=== PATIENT | female | born 1990 | race African-American/Black ===

== ENCOUNTER 2019-05-28 14:09 | Outpatient (CLI) | payer MEDICAID ==
--- NOTE | 2019-05-28 15:18 | ULT ---
ULTRASOUND OBSTETRICAL COMPLETE: DATE: 05/28/2019 HISTORY: 28-year-old high-risk in second trimester ICD-10: O09.92 FINDINGS: number: zavaleta lie: Vertex Maternal cervix: 3.5 cm. Closed. Placenta: Posterior. No placenta previa. Amniotic fluid volume: URIEL = 16.5 cm heart rate: 152 bpm The following anatomy is visualized, with no evidence of anomalies: Head, cerebellum, lateral ventricles, four-chamber heart, stomach, kidneys, cord insertion, bladder, cervical spine, thoracic spine, lumbar spine, sacrum, nose and lips, upper extremities, lower extremities, and three-vessel cord. biometry: Biparietal diameter (BPD): 4.8 cm 20 w 5 d Head circumference (HC): 18.2 cm 20 w 5 d Abdominal circumference (AC): 14.7 cm 20 w 0 d Femur length (FL): 3.3 cm 20 w 3 d Average ultrasound age (AUA): 20 w 4 d Estimated date of delivery (FABIOLA): 10/11/2019 Estimated weight (EFW): 340 g +/- 50 g IMPRESSION: 1) Live 2nd trimester intrauterine gestation. 2) Estimated gestational age of 20 weeks, 4 days 3) cephalic lie. 4) no anatomic abnormality identified.
== END 2019-05-28 14:10 | disposition home or self-care (01) ==
LOC: BICULT 14:09
PROVIDERS: ATTEND Nurse Practitioner
DX: O09.92 Supervision of high risk pregnancy, unspecified, second trimester (principal); Z3A.20 20 weeks gestation of pregnancy
CPT/HCPCS: 76805

== ENCOUNTER 2019-09-30 01:43 | Outpatient (CLI) | payer OTHER ==
[2019-09-30 22:22] LABS: SARS-CoV-2 MS2 Positive; SARS-CoV-2 N Gene Negative; SARS-CoV-2 S Gene Negative; SARS-CoV-2 orf1ab Negative
== END 2019-09-30 01:44 | disposition home or self-care (01) ==
LOC: ERS 01:43
PROVIDERS: ATTEND Family Medicine
DX: Z11.59 Encounter for screening for other viral diseases (principal); Z01.812 Encounter for preprocedural laboratory examination
CPT/HCPCS: 87635; U0003

== ENCOUNTER 2019-10-02 09:22 | Inpatient (IN) | payer OTHER ==
[2019-10-02] MEDS ORDERED: Promethazine HCl 25 MG/ML VIAL IM PRN ×3 (10:38→14:42)
[2019-10-02] MEDS ORDERED: Ondansetron PF 4 MG/2 ML Vial IVP PRN ×4 (10:38→15:32)
[2019-10-02] MEDS ORDERED: hydrALAZINE 20 MG/ML VIAL SLOW IVP PRN ×2 (10:38→15:32)
[2019-10-02 11:20] VITALS: BMI 25.7
[2019-10-02] MEDS ORDERED: CEFAZOLIN 2 GM in Premix Bag 1 BAG IVPB SCH ×2 (11:30→11:45)
[2019-10-02] MEDS ORDERED: Bicitra 30 ML UDCUP PO SCH (11:30)
[2019-10-02 12:01] LABS: Hemoglobin 11.6 g/dL (12.0-16.0); Mean Corpuscular HGB CONC 35.2 g/dL (32.0-36.0); Mean Corpuscular Hemoglobin 34.7 pg (27.0-31.0); Mean Corpuscular Volume 98.6 fL (78.0-98.0); Mean Platelet Volume 10.8 fL (7.4-10.4); Platelet Count 89 thou/uL (130-400); RBC Distribution Width 12.4 % (11.5-14.5); Red Blood Cell (RBC) Count 3.35 mill/uL (4.20-5.40); White Blood Cell (WBC) Count 5.4 thou/uL (4.8-10.8)
[2019-10-02] MEDS ORDERED: MORPHINE 5 MG/10 ML PF VIAL ONE (12:05)
[2019-10-02] MEDS ORDERED: PHENYLEPHRINE-NS 100 MCG/ML 10 ML SYRINGE ONE (12:05)
[2019-10-02] MEDS ORDERED: EPHEDRINE 25 MG/5 ML SYRINGE ONE (12:05)
[2019-10-02] MEDS ORDERED: Oxytocin 10 UNITS/ML VIAL ONE (12:05)
[2019-10-02] MEDS ORDERED: Ondansetron PF 4 MG/2 ML Vial ONE (12:06)
[2019-10-02 12:19] LABS: HBSAg Index 0.16 S/CO (0-0.99); Hep B Surf Ag Non-Reactive S/CO (NonReactive); Syphilis Antibody Nonreactive (Nonreactive)
[2019-10-02] MEDS ORDERED: Promethazine HCl 25 MG SUPP PR PRN ×2 (12:44→14:42)
[2019-10-02] MEDS ORDERED: diphenhydrAMINE 50 MG/ML VIAL IVP PRN ×2 (12:44→14:42)
[2019-10-02] MEDS ORDERED: Naloxone HCl 0.4 mg/ml Vial IV PRN ×2 (12:44→14:42)
[2019-10-02] MEDS ORDERED: Naloxone HCl 0.4 mg/ml Vial IVP PRN ×4 (12:44→14:42)
[2019-10-02] MEDS ORDERED: Communication Order-Pharmacy FS SCH ×2 (12:45→14:45)
[2019-10-02] MEDS ORDERED: NS / Oxytocin 40 units/1000ml 1,000 ML ONE (13:26)
--- NOTE | 2019-10-02 14:36 | PDOC.OPDEL ---
OB Operative/Delivery Note Delivery Dr/Surgeon: Dr. Mason Assist: Dr. Lauren Pre-Delivery Diagnosis: scheduled section Procedure/Post Delivery Dx: repeat low transverse CS Weeks gestation: 39 Anesthesia: spinal - Findings A Sex: male - Additional Findings/Plan Placenta delivered: manual removal findings: low transverse hysterotomy without extension Estimated blood loss: 900mL Compilations/Other Findings: Preoperative Diagnosis: 1)Term intrauterine 2)Previous Postoperative Diagnosis: 1)Term intrauterine , delivered 2)Previous Anesthesia: spinal Indications: The patient is a 29 year old female at 39.0 weeks gestation who presents for a repeat scheduled . Procedure in Detail: After risks, benefits, and alternatives were explained to the patient, she gave informed consent. Pre-operative antibiotics included Cefazolin 2 gram IV. The patient was taken to the operating room and spinal anesthesia was initiated. She was placed in the supine position with a left tilt and prepped and draped in usual sterile fashion. A Pfannenstiel incision was made with a scalpel and carried down to the level of the fascia which was sharply nicked. The fascial cut was extended bilaterally with Henriquez scissors. The inferior and superior edges of the cut fascial edges were elevated with Nia clamps and the underlying rectus muscles were sharply and bluntly dissected free. The recti were divided digitally and retracted manually. The peritoneum was entered bluntly and retracted manually. Bladder blade was placed. A low transverse score was made with the scalpel with brisk bright red bleeding of the uterus. The scalpel was used to continue to sharply cut through the bleeding and bluntly feel for thickness and the uterus was entered in the midline bluntly. Small amount of clear fluid was seen. The hysterotomy was extended manually. The infant was noted to be vertex and was easily delivered by fundal pressure. Mouth and nares were bulb suctioned. Cord clamped and cut and grossly normal male infant was handed to waiting nurse. Cord blood was obtained. Placenta was manually extracted, found to be intact with 3 vessel cord and discarded. The uterus was externalized and the endometrium was curetted with a dry lap. The bladder blade was replaced and the uterus was closed with a running locking #1 Monocryl suture. Following this hemostasis was noted. The abdomen was irrigated with saline and suctioned free of clots. Seprafilm was placed over the anterior aspect of the uterus. The uterus was internalized and the hysterotomy was again noted to be hemostatic. The peritoneum was closed with running non-locking 3-0 vicryl suture. The fascia was closed with a running non-locking 0-PDS suture. The subcutaneous tissue was irrigated and there were no bleeders. The subcutaneous layer was approximated with interrupted 3-0 vicryl suture.The skin was approximated with mallory and a pressure dressing was placed. All counts were correct. The patient tolerated the procedure well and was taken to the recovery room in stable condition. Delivery Time: 1236 on 10/02/19 Estimated Blood Loss: 900 ml Complications: None Specimens: Cord blood sent to lab for blood type Findings: Grossly normal male infant. Grossly normal placenta with 3 vessel cord discarded. Drains: Srivastava to gravity draining clear urine Post delivery plan: routine recovery
[2019-10-02] MEDS ORDERED: Meperidine HCl/PF 25 MG/ML VIAL SLOW IVP PRN (14:42)
[2019-10-02] MEDS ORDERED: Ondansetron HCl/PF 4 MG/2 ML Vial IVP PRN (14:42)
[2019-10-02] MEDS ORDERED: Ketorolac Tromethamine 30 MG/ML VIAL IVP PRN (14:42)
[2019-10-02] MEDS ORDERED: HYDROmorphone 2 MG/ML VIAL SLOW IVP PRN (14:42)
[2019-10-02] MEDS ORDERED: L&D-Morphine 4 MG/ML VIAL SLOW IVP PRN (14:42)
[2019-10-02] MEDS ORDERED: Ketorolac Tromethamine 30 MG/ML VIAL IVP SCH (14:45)
[2019-10-02] MEDS ORDERED: Meperidine HCl/PF 25 MG/ML VIAL ONE (14:46)
[2019-10-02] MEDS: Lactated Ringer's 1,000 ML IV SCH ×2 (15:08→15:09)
[2019-10-02] MEDS ORDERED: Ketorolac Tromethamine 30 MG/ML VIAL ONE (15:21)
[2019-10-02] MEDS ORDERED: NS / Oxytocin 40 units/1000ml 1,000 ML IV SCH (15:32)
[2019-10-02] MEDS ORDERED: Meperidine HCl/PF 25 MG/ML VIAL IM PRN (15:32)
[2019-10-02] MEDS ORDERED: Bisacodyl 10 MG SUPP PR PRN (15:32)
[2019-10-02] MEDS ORDERED: HYDROcodone/Acetaminophen 5/325 mg Tablet PO PRN ×2 (15:32)
[2019-10-02] MEDS ORDERED: Lanolin Ointment 7 GM TUBE TOP PRN (15:32)
[2019-10-02] MEDS: Simethicone Chewable 80 MG TAB PO PRN (21:03)
[2019-10-02] MEDS: Docusate Calcium (SURFAK) 240 MG CAP PO SCH (21:03)
[2019-10-02] MEDS: Ketorolac Tromethamine 30 MG/ML VIAL IVP SCH (21:03)
[2019-10-02] MEDS: diphenhydrAMINE 25 MG CAP PO PRN (21:56)
[2019-10-02] MEDS: Ferrous Sulfate 325 MG TAB PO SCH (22:15)
[2019-10-03] MEDS: Simethicone Chewable 80 MG TAB PO PRN ×2 (01:07→05:59)
[2019-10-03] MEDS: Ketorolac Tromethamine 30 MG/ML VIAL IVP SCH ×2 (03:07→12:27)
[2019-10-03] MEDS: HYDROcodone/Acetaminophen 5/325 mg Tablet PO PRN ×4 (06:05→21:06)
[2019-10-03 07:08] LABS: Hemoglobin 9.4 g/dL (12.0-16.0); Mean Corpuscular Hemoglobin 33.7 pg (27.0-31.0); Mean Platelet Volume 10.4 fL (7.4-10.4); Platelet Count 76 thou/uL (130-400); RBC Distribution Width 12.4 % (11.5-14.5); Red Blood Cell (RBC) Count 2.78 mill/uL (4.20-5.40); White Blood Cell (WBC) Count 6.6 thou/uL (4.8-10.8)
[2019-10-03] MEDS: Prenatal Vitamin 1 TAB PO SCH (09:20)
[2019-10-03] MEDS: Docusate Calcium (SURFAK) 240 MG CAP PO SCH ×2 (09:20→21:01)
[2019-10-03] MEDS: Ferrous Sulfate 325 MG TAB PO SCH ×2 (09:20→21:01)
[2019-10-03] MEDS: Ibuprofen 800 MG TAB PO SCH ×2 (14:03→21:01)
[2019-10-03] MEDS ORDERED: Adacel (T-DAP) 0.5 ML SYRINGE IM ONE (15:32)
[2019-10-03] MEDS: diphenhydrAMINE 25 MG CAP PO PRN (21:00)
[2019-10-04] MEDS: HYDROcodone/Acetaminophen 5/325 mg Tablet PO PRN ×3 (02:17→11:03)
[2019-10-04] MEDS: Ibuprofen 800 MG TAB PO SCH ×2 (04:26→13:44)
[2019-10-04] MEDS: Ferrous Sulfate 325 MG TAB PO SCH (08:17)
[2019-10-04] MEDS: Docusate Calcium (SURFAK) 240 MG CAP PO SCH (08:17)
[2019-10-04] MEDS: Prenatal Vitamin 1 TAB PO SCH (08:18)
[2019-10-04 11:51] VITALS: BP 101/57; TEMP 98.4
== END 2019-10-04 14:50 | disposition home or self-care (01) | DRG 806 ==
LOC: L&D-LIB 09:22 → L&D 09:59 → 3SW 17:03
PROVIDERS: ADMIT Family Medicine; ATTEND Family Medicine
PROC: 10E0XZZ Delivery of Products of Conception, External Approach (ICD-10-PCS; principal; 2019-10-02)
PROC: 10907ZC Drainage of Amniotic Fluid, Therapeutic from Products of Conception, Via Natural or Artificial Opening (ICD-10-PCS; 2019-10-02)
DX: O34.211 Maternal care for low transverse scar from previous cesarean delivery (principal); O99.12 Other diseases of the blood and blood-forming organs and certain disorders involving the immune mechanism complicating childbirth; Z37.0 Single live birth; D69.6 Thrombocytopenia, unspecified; Z3A.39 39 weeks gestation of pregnancy
CPT/HCPCS: 36415; 51702; 85027; 86780; 86850; 86900; 86901; 87340; J1885; J2175; J2274; J2405; J2590; Q0163